=== PATIENT | male | born 1950 | race Caucasian/White ===

== ENCOUNTER 2019-02-23 10:52 | Emergency (ER) | payer MEDICARE, MEDICAID ==
[~2019-02-23] VITALS: Ht 162.6 cm; Wt 64.5 kg
[~2019-02-23 10:52] MED LIST: ALPR2TAB5 PO; LIPA1CAP61 PO; METF500T17 PO; OMEP-110 PO
[2019-02-23 11:02] VITALS: BP 122/74
[2019-02-23] MEDS ORDERED: LIDOCAINE-MPF 1%, 5ML INFIL ONE (11:30)
[2019-02-23] MEDS ORDERED: HYDROcodone/APAP 5/325 TABLET ONE (11:50)
--- NOTE | 2019-02-23 11:53 | NUR ---
pt here for dental pain. has not seen a dentist at this time. pt medicated for pain. Patient/Caregiver given discharge instructions and they have confirmed that they understand the instructions. Patient ambulatory with steady gait.
[2019-02-23] MEDS ORDERED: HYDROcodone/APAP 5/325 TABLET PO ONE (12:00)
== END 2019-02-23 11:56 ==
LOC: ED 11:50
DX: K02.9 Dental caries, unspecified (principal)
CPT/HCPCS: 99283

== ENCOUNTER 2021-04-27 13:13 | Emergency (ER) | payer MEDICARE, MEDICAID ==
[~2021-04-27] VITALS: Ht 162.6 cm; Wt 59.1 kg
--- NOTE | 2021-04-27 13:26 | NUR ---
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
--- NOTE | 2021-04-27 13:39 | NUR ---
PT RESTING IN POSITION OF COMFORT IN [facility]. CALL LIGHT W/IN REACH. PT INSTRUCTED ON USE, VERBALIZED UNDERSTANDING. VSS. PT HR LOW, PLACED ON CONTINUOUS CARDIAC MONITORING. SINUS BRADYCARDIA PRESENT ON THE MONITOR. FALL PRECAUTIONS IN PLACE. PT DENIES NEEDS AT THIS TIME. AWAITING EVAL BY ED MD.
--- NOTE | 2021-04-27 14:20 | NUR ---
MED STUDENT AT BS
[2021-04-27] MEDS ORDERED: SODIUM CHLORIDE FLUSH 10ML SYR IVF ONE (14:30)
--- NOTE | 2021-04-27 14:36 | NUR ---
ERP AND MED STUDENT AT BS
[2021-04-27] MEDS ORDERED: ACETAMINOPHEN 500 MG TABLET ONE (14:47)
[2021-04-27 14:59] LABS: BASOPHILS % (AUTO) 1 % (0-1); EOSINOPHILS % (AUTO) 14 % (1-7); LYMPHOCYTES % (AUTO) 23 % (22-44); MEAN CORPUSCULAR HEMOGLOBIN 30.7 pg (27.5-34.5); MEAN CORPUSCULAR HGB CONC 33.9 g/dL (33.2-36.2); MEAN PLATELET VOLUME 8.7 fL (7.4-10.4); MONOCYTES % (AUTO) 8 % (2-9); NEUTROPHILS % (AUTO) 55 % (42-75); PLATELET COUNT 145 x10^3/uL (130-400); RED BLOOD COUNT 4.16 x10^6/uL (4.38-5.82); RED CELL DISTRIBUTION WIDTH 13.3 % (9.4-14.8)
[2021-04-27] MEDS ORDERED: ACETAMINOPHEN 500 MG TABLET PO ONE (15:00)
--- NOTE | 2021-04-27 15:00 | NUR ---
PIV PLACED, PT MEDICATED PER EMAR. CALL LIGHT WITHIN REACH. BED IN LOWEST POSITION. COMFORT MEASURES PROVIDED
[2021-04-27 15:07] LABS: ALBUMIN 3.5 g/dL (3.4-5.0); ANION GAP 2 mmol/L (5-15); CALCIUM 8.7 mg/dL (8.5-10.1); CHLORIDE 106 mmol/L (98-107)
[2021-04-27 15:10] LABS: ALANINE AMINOTRANSFERASE 22 U/L (12-78); ALKALINE PHOSPHATASE 47 U/L (45-117); BILIRUBIN,TOTAL 0.5 mg/dL (0.2-1.0); CREATININE 0.79 mg/dL (0.7-1.3)
--- NOTE | 2021-04-27 15:17 | NUR ---
PT UNABLE TO VOID AT THIS TIME
--- NOTE | 2021-04-27 15:42 | NUR ---
PT TO CT
--- NOTE | 2021-04-27 15:56 | NUR ---
PT BACK FROM CT, CONNECTED TO MONITORS. CALL LIGHT WITHIN REACH. BED IN LOWEST POSITION, BED RAILS UP X2
[2021-04-27] MEDS ORDERED: OMNIPAQUE 350 MG/ML, 100ML BOTTLE ONE (16:08)
[2021-04-27 16:39] LABS: MICROSCOPIC AUTO
--- NOTE | 2021-04-27 17:02 | NUR ---
PT CHART UP FOR RECHECK
[2021-04-27 17:37] VITALS: BP 121/68
--- NOTE | 2021-04-27 17:48 | NUR ---
ERP AT BS
--- NOTE | 2021-04-27 18:21 | NUR ---
Patient given discharge instructions and they have confirmed that they understand the instructions. Patient ambulatory with steady gait.
== END 2021-04-27 18:22 | disposition home or self-care (01) ==
LOC: ED 17:50
DX: K80.70 Calculus of gallbladder and bile duct without cholecystitis without obstruction (principal); K59.00 Constipation, unspecified; R00.1 Bradycardia, unspecified
CPT/HCPCS: 36415; 74177; 80053; 81001; 83605; 83690; 85025; 93005; 99285; Q9967

== ENCOUNTER 2021-05-10 08:33 | Day surgery (SDC) | payer MEDICARE, MEDICAID ==
[~2021-05-10] VITALS: Ht 162.6 cm; Wt 55.8 kg
[~2021-05-10 08:33] MED LIST changes: +BUPIVACAINE/PF 0.5% ONE
[2021-05-10] MEDS ORDERED: LACTATED RINGERS 1,000 ML IV SCH (09:30)
[2021-05-10] MEDS ORDERED: CHLORHEXIDINE 15 ML UDC PO ONE (09:30)
[2021-05-10] MEDS ORDERED: TAMS-11 PO (09:30)
[2021-05-10] MEDS ORDERED: [UNRECOGNIZED DRUG - OTHER] PO (09:30)
[2021-05-10] MEDS ORDERED: ACET-1600 PO (09:30)
[2021-05-10] MEDS ORDERED: CHLORHEXIDINE 15 ML UDC ONE (09:34)
[2021-05-10 09:45] VITALS: BP 106/65
[2021-05-10] MEDS ORDERED: FENTANYL PF 250 MCG/5ML ONE (09:45)
[2021-05-10] MEDS ORDERED: ACETAMINOPHEN 325 MG TABLET PO PRN (10:30)
[2021-05-10] MEDS ORDERED: MEPERIDINE/PF 25MG/0.5ML IVPush PRN (10:30)
[2021-05-10] MEDS ORDERED: LABETALOL 5MG/ML, 20ML IV PRN (10:30)
[2021-05-10] MEDS ORDERED: hydrALAzine 20 MG/ML, 1ML IV PRN (10:30)
[2021-05-10] MEDS ORDERED: HALOPERIDOL 5 MG/ML IV PRN (10:30)
[2021-05-10] MEDS ORDERED: DIPHENHYDRAMINE 50 MG/ML, 1ML IVPush PRN (10:30)
[2021-05-10] MEDS ORDERED: PROMETHAZINE 25 MG/ML, 1ML IVPush PRN (10:30)
[2021-05-10] MEDS ORDERED: CEFOTETAN 2 GM ONE ×2 (10:38→13:06)
[2021-05-10] MEDS ORDERED: KETOROLAC 30 MG/1 ML ONE (10:54)
[2021-05-10] MEDS ORDERED: GLYCOPYRROLATE 0.2MG/1ML, 5ML ONE (10:55)
[2021-05-10] MEDS ORDERED: SUCCINYLCHOLINE 20 MG/ML, 10ML ONE (10:55)
[2021-05-10] MEDS ORDERED: ROCURONIUM 10MG/ML,5ML ONE (10:55)
[2021-05-10] MEDS ORDERED: ONDANSETRON 2MG/ML, 2ML ONE (10:55)
[2021-05-10] MEDS ORDERED: DEXAMETHASONE 4 MG/ML, 1ML ONE (10:55)
[2021-05-10] MEDS ORDERED: PROPOFOL 10 MG/ML, 20ML ONE (10:55)
[2021-05-10] MEDS ORDERED: CEFAZOLIN 1,000 MG ONE (10:55)
[2021-05-10] MEDS ORDERED: NEOSTIGMINE 1 MG/ML, 10ML ONE (10:55)
[2021-05-10] MEDS ORDERED: OXYC1TAB14 PO (11:29)
[2021-05-10] MEDS ORDERED: OXYcodone 5 MG/5 ML ORAL.SOL UDC ONE ×2 (11:31→12:39)
[2021-05-10] MEDS ORDERED: FENTANYL PF 100 MCG/2ML ONE (11:31)
[2021-05-10] MEDS ORDERED: MEPERIDINE/PF 25MG/ML,1ML ONE (11:31)
[2021-05-10] MEDS ORDERED: ACETAMINOPHEN 650 MG/20.3 ML UDC ONE (11:31)
[2021-05-10] MEDS: OXYcodone 5 MG/5 ML ORAL.SOL UDC PO PRN ×2 (11:34→12:44)
[2021-05-10] MEDS: FENTANYL PF 100 MCG/2ML IV PRN ×2 (11:50→11:56)
[2021-05-10] MEDS ORDERED: HYDROmorphone 2 MG/ML, 1ML ONE ×2 (12:02→12:39)
[2021-05-10] MEDS: HYDROmorphone 1 MG/ML, 1ML INJ IVPush PRN ×6 (12:05→12:48)
[2021-05-10] MEDS ORDERED: LORazepam 2 MG/ML, 1ML ONE (12:09)
[2021-05-10] MEDS: LORazepam 2 MG/ML, 1ML IVPush PRN ×2 (12:13→12:28)
== END 2021-05-10 14:20 | disposition home or self-care (01) ==
LOC: OUT 08:33
PROVIDERS: ATTEND Surgery
DX: K80.10 Calculus of gallbladder with chronic cholecystitis without obstruction (principal); K21.9 Gastro-esophageal reflux disease without esophagitis; F41.9 Anxiety disorder, unspecified; F32.9 Major depressive disorder, single episode, unspecified; N40.0 Benign prostatic hyperplasia without lower urinary tract symptoms; Z79.899 Other long term (current) drug therapy; Z87.891 Personal history of nicotine dependence
CPT/HCPCS: 47562; 71045; 88304; J0330; J1100; J1170; J1885; J2060; J2175; J2405; J2704; J2710; J3010; J7120; J0690